=== PATIENT | male | born 1980 | race Caucasian/White ===

== ENCOUNTER 2016-07-06 19:21 | Emergency (ER) | payer MEDICAID, OTHER ==
[~2016-07-06] VITALS: Ht 177.8 cm; Wt 74.5 kg
[2016-07-06 19:56] VITALS: BP 187/107; PULSE 112; RESP 20; O2SAT 99
--- NOTE | 2016-07-06 21:01 | ED.REPORT ---
HPI-Extremity Problem Upper Date of Service July 06, 2016 ED Provider: Jovi Garcia MD A 35 year old male with a history of right elbow carpal tunnel and hypertension presents to the ED complaining of left elbow swelling. The pt noticed pain in his left elbow when he woke four days ago that felt similar to the symptoms he frequently experiences in his right elbow. He noticed swelling the next morning , which has worsened since. He experiences intermittent burning pain and is concerned that the elbow may be infected. Soaking the elbow with warm water and Epsom salt has not improved his symptoms. Nursing Notes Stated Complaint: LEFT ELBOW SWELLING Chief Complaint: Extremity Trauma Nursing Notes Reviewed: Yes Allergies: Coded Allergies: No Known Allergies (Unverified Allergy, Unknown, 09/28/14) Scheduled Sulfamethoxazole/Trimeth 800-160 mg (Bactrim DS) 1 Each Tablet 1 TABLET PO BID General Time Seen by MD: 21:01 Chief Complaint Other (Left elbow swelling) Hx Obtained From: Patient Arrived By: Walk-in Onset Occurred: 4 days ago Symptom Duration: Since onset Recent Healthcare: No recent doctor visit, No recent hospitalization Similar Sx Previous: No Past Medical History Past Medical History Hypertension Right elbow carpal tunnel Past Surgical History Esophageal surgery at Family History Noncontributory Social History Alcohol Use: "Social" Drug Use: Meth Other Social History: Local resident Ambulatory Status Independent Review of Systems Constitutional: Denies: Fever Musculoskeletal: Reports: Joint pain (left elbow), Joint swelling (left elbow) Skin: Denies Rash Complete sys rev & neg: except as marked. Respiratory: Denies: Non-productive cough, Shortness of breath Cardiovascular: Denies: Chest pain GI: Denies: Abdominal pain Physical Exam Initial Vital Signs Vital Signs (First) Date Time Temp Pulse Resp B/P Pulse Ox O2 Delivery O2 Flow Rate FiO2 07/06/16 19:56 37.2 112 20 187/107 99 Room Air Initial VS: Reviewed General/Constitutional: Awake, Alert Neck: Atraumatic, Supple, Full range of motion Respiratory / Chest: Atraumatic, No respiratory distress Upper Extremity / MS: No deformity edema of left olecranon bursa, somewhat red, warm to touch Skin: Atraumatic, Color NL, No rash, Warm, Dry Neurologic: Oriented X3, Speech NL, No motor deficits, No sensory deficits Head / Eyes: Atraumatic, Normocephalic, PERRL, EOMI ENT: Atraumatic, Airway patent, Mucous membranes moist Abdomen: Atraumatic, Soft, Non-tender Back: Atraumatic, Full range of motion Lower Extremity / Pelvis / MS: Atraumatic, Full range of motion Psychiatric: Affect NL, Mood NL Re-Eval/Medical Decision Source of Hx: Old records Counseled Regarding: Diagnosis, Need for follow-up, When/why to return to ED Discharge & Departure Impression: Primary Impression: Olecranon bursitis of left elbow Disposition: Home Discharge Condition All VS Reviewed: Yes Condition: Stable Patient Instructions: Elbow Bursitis (GEN) Additional Instructions: I believe that you have an infection of the left olecranon bursa. This is a fluid-filled cushion over the elbow itself. Normally it is flat with a very minimal amount of fluid. I believe that an antibiotic and a wrap should help resolve the symptoms over the next few days. I would also recommend ibuprofen 800 mg every 8 hours. It is not significantly improved in a few days, I would recommend follow-up with your primary care provider for further evaluation. Referrals: [facility] (PCP) Alondra Attestation Portions of this note were transcribed by Olga Matthews. I, Dr. Garcia personally performed the history, physical exam and medical decision-making; I reviewed and confirmed the accuracy of the information in the transcribed note. Signed by: Alondra Mccarthy, 07/06/16 and 2112. copies to: [facility] Kirk H MD July 06, 2016 21:01 OLGA MATTHEWS July 06, 2016 21:08
[2016-07-06] MEDS ORDERED: SULF1TAB7 PO (21:14)
[2016-07-06] MEDS ORDERED: Trimethoprim-Sulfa 160 mg-800 mg Tablet PO ONE (21:15)
[2016-07-06 21:31] VITALS: BP 163/111; PULSE 107; O2SAT 98
[2016-07-06 21:39] VITALS: BP 163/111; PULSE 107; O2SAT 98
== END 2016-07-06 21:40 | disposition home or self-care (01) ==
LOC: SED 19:21
DX: M70.22 Olecranon bursitis, left elbow (principal); I10 Essential (primary) hypertension; J45.909 Unspecified asthma, uncomplicated